=== PATIENT | female | born 1955 | race Caucasian/White ===

== ENCOUNTER 2017-01-27 14:57 | Emergency (ER) | payer OTHER, MEDICAID ==
[~2017-01-27] VITALS: Ht 162.6 cm; Wt 60.0 kg
[~2017-01-27 14:57] MED LIST: BUPR-197 PO; GABA300C3 PO; HYDR10TA16 PO; OMEP20TA PO; PRAV20TA67 PO
[2017-01-27 15:10] VITALS: RESP 14; TEMP 98.8
[2017-01-27 15:34] LABS: AUTOMATED NEUTROPHIL # 6.4 TH/MM3 (1.8-7.7); BASOPHIL # 0.1 TH/MM3 (0-0.2); BASOPHIL % 1.2 % (0.0-2.0); EOSINOPHIL % 0.3 % (0.0-4.0); HEMATOCRIT 36.8 % (35.0-46.0); HEMO FLAGS DIFF FINAL; LYMPH % 19.3 % (9.0-44.0); LYMPHOCYTE # 1.7 TH/MM3 (1.0-4.8); MEAN CELL VOLUME 88.2 FL (80.0-100.0); MEAN CORPUSCULAR HEMOGLOBIN 28.3 PG (27.0-34.0); MEAN CORPUSCULAR HGB CONC 32.1 % (32.0-36.0); NEUT % 73.2 % (16.0-70.0); PLATELET COUNT 337 TH/MM3 (150-450); RED BLOOD COUNT 4.17 MIL/MM3 (4.00-5.30); RED CELL DISTRIBUTION WIDTH 18.8 % (11.6-17.2); WHITE BLOOD COUNT 8.8 TH/MM3 (4.0-11.0)
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
[2017-01-27 16:06] LABS: ALKALINE PHOSPHATASE 84 U/L (45-117); TOTAL BILIRUBIN ADULT 0.4 MG/DL (0.2-1.0)
[2017-01-27 16:07] LABS: ALT (GPT) 14 U/L (10-53); ANION GAP 8 MEQ/L (5-15); AST (GOT) 18 U/L (15-37); BICARBONATE 22.6 MEQ/L (21.0-32.0); BLOOD UREA NITROGEN 15 MG/DL (7-18); CHLORIDE 108 MEQ/L (98-107); GLOMERULAR FILTRATION RATE 59 ML/MIN (>89); SODIUM (NA) 139 MEQ/L (136-145)
[2017-01-28 06:19] VITALS: BP 123/79; PULSE 94; RESP 18; O2SAT 97
[2017-01-28] MEDS ORDERED: buPROPion HCL 150 MG SUSTAINED RELEASE TAB PO SCH (09:00)
[2017-01-28] MEDS: GABAPENTIN 300 MG CAP PO SCH ×2 (09:00→14:28)
[2017-01-28] MEDS ORDERED: PRAVASTATIN SOD 20 MG TAB PO SCH (09:00)
[2017-01-28] MEDS ORDERED: PANTOPRAZOLE SOD 20 MG DELAYED RELEASE TAB PO SCH (09:00)
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
[2017-01-28 14:30] VITALS: BP 104/71; PULSE 89; RESP 16
[2017-01-28] MEDS ORDERED: AMLO5TAB2 PO (15:08)
[2017-01-28] MEDS ORDERED: CIPR250T52 PO (15:08)
[2017-01-28] MEDS ORDERED: CYCL5TAB PO (15:09)
[2017-01-28] MEDS ORDERED: ATOR20TA15 PO (15:10)
[2017-01-28] MEDS ORDERED: BUPR150CR PO (15:12)
[2017-01-28] MEDS ORDERED: FOSA70TA PO (15:12)
[2017-01-28] MEDS ORDERED: LISI40TA PO (15:12)
[2017-01-28] MEDS ORDERED: GABA300C5 PO (15:13)
[2017-01-28] MEDS ORDERED: OMEP20TA PO (15:13)
[2017-01-28] MEDS ORDERED: DULO1CAP3 PO (15:14)
== END 2017-01-28 15:55 | disposition short-term general hospital (02) ==
LOC: NEDAMB 14:57 → NEPJ 01-28 15:55
DX: F09 Unspecified mental disorder due to known physiological condition (principal); L03.116 Cellulitis of left lower limb; I69.920 Aphasia following unspecified cerebrovascular disease; M19.90 Unspecified osteoarthritis, unspecified site; F41.9 Anxiety disorder, unspecified; F32.9 Major depressive disorder, single episode, unspecified; I10 Essential (primary) hypertension; G47.30 Sleep apnea, unspecified; F19.21 Other psychoactive substance dependence, in remission
CPT/HCPCS: 80053; 85025; 99284